=== PATIENT | male | born 1935 | race Caucasian/White ===

== ENCOUNTER 2019-12-31 12:34 | Emergency (ER) | payer MEDICARE, OTHER ==
[~2019-12-31] VITALS: Ht 175.3 cm; Wt 81.0 kg
[2019-12-31] MEDS ORDERED: ROSU10TA6 (12:43)
[2019-12-31 13:32] LABS: HEMOGLOBIN 14.9 g/dl (12.0-15.5); MEAN CORPUSCULAR HGB CONC 33.1 g/dl (32.0-36.5); MEAN CORPUSCULAR VOLUME 96.6 fl (80.0-96.0); PLATELET COUNT, AUTOMATED 169 10^3/uL (150-450); RED BLOOD COUNT 4.66 10^6/uL (4.00-5.40); WHITE BLOOD COUNT 8.2 10^3/uL (4.0-10.0)
[2019-12-31 13:49] LABS: BLOOD UREA NITROGEN 15 MG/DL (7-18); C REACTIVE PROTEIN QUANTITATIV < 0.30 MG/DL (0.00-0.30); CALCIUM LEVEL 8.5 MG/DL (8.8-10.2); CARBON DIOXIDE LEVEL 27 MEQ/L (21-32); CHLORIDE LEVEL 110 MEQ/L (98-107); GLOMERULAR FILTRATION RATE > 60.0 (>32); GLUCOSE, FASTING 108 MG/DL (70-100); POTASSIUM SERUM 4.1 MEQ/L (3.5-5.1); SODIUM LEVEL 141 MEQ/L (136-145)
[2019-12-31 14:02] LABS: ERYTHROCYTE SEDIMENTATION RATE 5 mm/hr (0-30)
--- NOTE | 2019-12-31 14:44 | REP ---
Previous pelvis left hip: 12/31/2019. Indication: Left hip pain. Comparison: None. Findings: There is no acute fracture, subluxation or dislocation. Moderate narrowing of the hip joints bilaterally is noted. No lytic or blastic lesions are present. Impression: No acute fracture. Electronically Signed by Sami Rivera DO 12/31/2019 02:35 P
[2019-12-31] MEDS ORDERED: MIRA3350 PO (15:46)
[2019-12-31 15:54] VITALS: BP 182/79
[2019-12-31] MEDS ORDERED: MAGNESIUM CITRATE 300 ML BTL PO ONE (16:00)
== END 2019-12-31 16:03 | disposition home or self-care (01) ==
LOC: EDSEX 12:34 → M ED 12:34
DX: M25.552 Pain in left hip (principal); K59.00 Constipation, unspecified; Z79.899 Other long term (current) drug therapy; Z87.891 Personal history of nicotine dependence